=== PATIENT | female | born 1995 | race Two or more races ===

== ENCOUNTER 2020-02-02 12:50 | Outpatient (CLI) | payer MEDICAID ==
[~2020-02-02] VITALS: Ht 165.1 cm; Wt 68.5 kg
[2020-02-02 13:20] VITALS: BP 107/69
[2020-02-03] MEDS ORDERED: BCP (12:25)
== END 2020-02-02 14:50 | disposition home or self-care (01) ==
LOC: PAN 12:50
DX: K42.9 Umbilical hernia without obstruction or gangrene (principal)
CPT/HCPCS: G0463